=== PATIENT | male | born 1980 | race Caucasian/White ===

== ENCOUNTER 2020-06-24 13:53 | Emergency (ER) | payer MEDICAID, SELFPAY ==
--- NOTE | 2020-06-24 14:10 | PC.NURSE ---
x1 call for triage, no answer
[2020-06-24 14:22] VITALS: BP 126/73; PULSE 95; RESP 16; TEMP 36.6; O2SAT 96; BMI 27.3
--- NOTE | 2020-06-24 15:28 | ED.SKABFB ---
HPI - Skin/Abscess/Foreign Bdy General Chief complaint: Skin/Abscess/Foreign Body Stated complaint: SKIN INFECTION Time Seen by Provider: 06/24/20 15:26 Source: patient Mode of arrival: ambulatory Limitations: no limitations History of Present Illness HPI narrative: Here for lesions to his bilateral hands does admit to IV DUs unsure if it is infected or not does pick at his skin. complaint: lesion Onset (ago): week(s) Tetanus up to date: yes Location: LUE and RUE Severity: mild Quality: aching Context: IVDA Treatments prior to arrival: none Related Data Previous Rx's Medication Instructions Recorded doxycycline monohydrate 100 mg PO BID 7 Days #14 cap 06/24/20 mupirocin 1 appl TOPICAL BID #22 g 06/24/20 Allergies Allergy/AdvReac Type Severity Reaction Status Date / Time No Known Allergies Allergy Verified 06/24/20 14:26 Review of Systems Review of Systems: Constitutional: Negative ENT/Mouth: Negative Eyes: Negative Cardiovascular: Negative Respiratory: Negative Gastrointestinal: Negative Genitourinary: Negative Musculoskeletal: No joint pain, No Myalgias, No Joint Swelling Skin: As noted for HPI Neuro: No Weakness, No Numbness, No Paresthesias, No Loss of Consciousness, No Dizziness, No Headache Psych: No Social Issues Heme/Lymph: No Bruising, No Bleeding,No Lymphadenopathy Endocrine: No Polyuria, No Polydipsia, No Temperature Intolerance Yes all other systems are reviewed and are negative [facility] Past Medical History Medical History (Updated 06/24/20 @ 15:32 by Can Stacy NP) Drug abuse Hepatitis C Social History Social History Advance Directives: No Advance Directives Information Provided: No Physical Exam Vital Signs: Vital Signs: Last Vital Signs Temp 97.9 F 06/24/20 14:22 Pulse 95 06/24/20 14:22 Resp 16 06/24/20 14:22 BP 126/73 06/24/20 14:22 Pulse Ox 96 06/24/20 14:22 Body Mass Index 27.3 Reviewed Const: General: cooperative and healthy appearing; No acute distress or intoxicated appearing Nutritional Appearance: average body habitus Orientation/consciousness: patient oriented x3 HENMT: Head: Yes normal to inspection Ears: hearing grossly normal bilaterally Eyes: General: appearance normal, both eyes and all related structures Visual Perez: normal visual perez by confrontation Neck: Neck: Yes normal visual inspection, No positive Brudzinski's sign, No positive Kernig's sign and No tender Thyroid: Thyroid normal Resp: Auscultation: clear to auscultation bilaterally Cardio: Rhythm: regular rhythm Heart sounds: S1 normal heart sound present and S2 normal heart sound present : General: Yes no CVA tenderness Back/Spine/Pelvis: Back: no CVA tenderness Skin: Other: Diffuse excoriated lesions as noted in the picture on his hands as well as on his neck and face consistent with excoriation. Without overt signs of infection. General skin exam: no rashes or lesions noted Neuro: General: patient oriented x3 Extrem: General: Yes normal to inspection Course Course Course Narrative: Requesting oral antibiotics aware not overly infected at this time will give topical mupirocin states he will hold onto antibiotics in case it gets worse. Discharge Plan Discharge Clinical Impression: Excoriation Patient Disposition: Home, Self-Care Instructions: Acute Wounds (ED) Prescriptions: New doxycycline monohydrate 100 mg capsule 100 mg PO BID 7 Days Qty: 14 RF: 0 mupirocin 2 % ointment 1 appl topical BID Qty: 22 RF: 0 Referrals: Physician,Nonstaff [Primary Care Provider] - 1 week (Your primary care doctor) Interventions: ED Discharge Assessment Last Done: 06/24/20 15:44 Discharge Date/Time: 06/24/20 15:46
== END 2020-06-24 15:46 | disposition home or self-care (01) ==
PROVIDERS: Emergency Provider Emergency Medicine
DX: F42.4 Excoriation (skin-picking) disorder (principal); F19.10 Other psychoactive substance abuse, uncomplicated; Z86.19 Personal history of other infectious and parasitic diseases
CPT/HCPCS: 99283

== ENCOUNTER 2020-07-31 06:36 | Emergency (ER) | payer MEDICAID, SELFPAY ==
[2020-07-31 06:48] VITALS: BP 136/60; BP 140/62; PULSE 110; PULSE 115; RESP 18; O2SAT 98; O2SAT 99; BMI 18.1
--- NOTE | 2020-07-31 06:57 | ED_ITS ---
HPI - General Adult General Chief complaint: General Medical Stated complaint: Cold Time Seen by Provider: 07/31/20 06:57 Source: patient Mode of arrival: EMS Limitations: no limitations History of Present Illness HPI narrative: [place] Comes in because he was cold. Onset (ago): minute(s) Associated symptoms: other (shakes and cold) Related Data Previous Rx's Medication Instructions Recorded doxycycline monohydrate 100 mg PO BID 7 Days #14 cap 06/24/20 mupirocin 1 appl TOPICAL BID #22 g 06/24/20 Allergies Allergy/AdvReac Type Severity Reaction Status Date / Time No Known Allergies Allergy Verified 06/24/20 14:26 Review of Systems Constitutional: Constitutional: Reports no additional constitutional compla ints Eyes: Eyes: Reports no additional eye complaints ENT: Denies dizziness Cardiovascular: Cardiovascular: Reports no additional cardiovascular complaints Respiratory: Respiratory: Reports as per HPI Gastrointestinal: Gastrointestinal: Reports no additional gastrointestinal complaints Musculoskeletal: Musculoskeletal: Reports no additional musculoskeletal complaints Integumentary/Breasts: Skin/Breast: Denies rash Neurologic: Reports system reviewed and no additional complaints, except as documented, Denies dizziness and Denies Sensory deficit (Neuro) Psychiatric: Psychiatric: Denies anxiety PMFSH Past Medical History Medical History (Updated 07/31/20 @ 07:52 by Joe Asif MD) Anxiety Drug abuse Hepatitis C PTSD (post-traumatic stress disorder) Social History Social History Smoking Status: Current every day smoker Use of substances other than those prescribed or required for medical reasons: Yes Substance Use Type: Marijuana Substance Use Frequency: Chronic Longstanding Advance Directives: No Advance Directives Information Provided: No Physical Exam Vital Signs: Vital Signs: Last Vital Signs Temp 97.7 F 07/31/20 07:25 Pulse 110 H 07/31/20 06:48 Resp 18 07/31/20 06:48 BP 136/60 07/31/20 06:48 Pulse Ox 98 07/31/20 06:48 Body Mass Index 18.1 Const: Other: shaking chills General: healthy appearing Nutritional Appearance: average body habitus Orientation/consciousness: oriented to person and patient oriented x3 Limitations: no limitations HENMT: Head: Yes normal to inspection Ears: external ears normal General nose exam: Normal external nose present Mouth: Normal oral and palatal mucosa present and oropharynx normal Throat: Yes posterior oropharynx normal Eyes: General: appearance normal, both eyes and all related structures Neck: Other: supple Neck: Yes normal visual inspection Chest: Chest palpation & inspection: normal inspection of the chest Resp: Auscultation: clear to auscultation bilaterally Cardio: Jugular venous distension: no JVD Rate: regular rate Rhythm: regular rhythm Heart sounds: S1 normal heart sound present and S2 normal heart sound present GI: Inspection: Yes normal to inspection Palpation (GI): Soft to palpation, nontender and No hepatosplenomegaly present Auscultation: normal bowel sounds : General: Yes no CVA tenderness Back/Spine/Pelvis: Back: no CVA tenderness Skin: General skin exam: no rashes or lesions noted Neuro: General: oriented to person and patient oriented x3 Cranial nerves: Yes CN's II-XII intact bilaterally Motor exam (neuro): 5/5 motor strength present throughout Sensory Exam: No Sensory deficit (Neuro) Extrem: General: Yes normal to inspection Psych: Appearance: grossly normal Medical Decision Making MDM Narrative Medical decision making narrative: Patient observed for exposure. His temperature was 97.7 will dc home Discharge Plan Discharge Clinical Impression: Cold exposure Qualifiers: Encounter type: initial encounter Qualified Code(s): T69.9XXA - Effect of reduced temperature, unspecified, initial encounter Patient Disposition: Home, Self-Care Instructions: Acute Hypothermia (ED) Prescriptions: No Action doxycycline monohydrate 100 mg capsule 100 mg PO BID 7 Days Qty: 14 RF: 0 mupirocin 2 % ointment 1 appl topical BID Qty: 22 RF: 0 Referrals: Physician,Unknown [Primary Care Provider] - 2 days
[2020-07-31 07:25] VITALS: TEMP 36.5
== END 2020-07-31 07:56 | disposition home or self-care (01) ==
PROVIDERS: Emergency Provider Emergency Medicine
DX: T69.8XXA Other specified effects of reduced temperature, initial encounter (principal); T68.XXXA Hypothermia, initial encounter; X31.XXXA Exposure to excessive natural cold, initial encounter; F19.10 Other psychoactive substance abuse, uncomplicated; Z86.19 Personal history of other infectious and parasitic diseases; F17.200 Nicotine dependence, unspecified, uncomplicated; F12.90 Cannabis use, unspecified, uncomplicated
CPT/HCPCS: 99284

== ENCOUNTER 2020-12-17 02:51 | Emergency (ER) | payer OTHER, SELFPAY ==
[2020-12-17 03:08] VITALS: BP 114/79; PULSE 101; RESP 18; TEMP 37.1; O2SAT 96; BMI 23.5
--- NOTE | 2020-12-17 03:49 | PC.NURSE ---
pt seen walking towards exit by this nurse. when asked where he was going he stated he was going outside to smoke a cigarette. this nurse informed him that he can not leave to smoke a cigarette or he may not be let back in and was offered a nicotine patch. pt walked out anyways. charge nurse and MD notified
== END 2020-12-17 04:24 | disposition left against medical advice (07) ==
PROVIDERS: Emergency Provider Emergency Medicine
DX: L23.7 Allergic contact dermatitis due to plants, except food (principal)
CPT/HCPCS: 99283